=== PATIENT | female | born 1985 | race Caucasian/White ===

== ENCOUNTER 2019-04-14 22:55 | Emergency (ER) | payer OTHER ==
[~2019-04-14] VITALS: Ht 172.7 cm; Wt 114.3 kg
[~2019-04-14 22:55] MED LIST: IBUP800T48 PO
[2019-04-14 23:02] VITALS: Ht 172.7 cm; Wt 114.3 kg
[2019-04-15] MEDS ORDERED: IBUPROFEN 600 MG TAB PO ONE (00:30)
--- NOTE | 2019-04-15 01:57 | ERD ---
ER Documentation Chief Complaint Chief Complaint LEFT HAND PAIN S/P HEAVY TRAYS FALLING ON HAND. CMS INTACT. HPI This is a 33-year-old female previously healthy presents to the emergency de partment by her coworker with concerns for left hand injury which occurred at 10:15 PM today. The patient works as a meat cutter apprentice at [employer] and she was preparing some meat when multiple large metal trays fell onto her left hand and left forearm. She took no medication for relief of symptoms. She reports 10/10 severity pain which is worse with movement. Pain is constant. No other symptoms reported currently. ROS All systems reviewed and are negative except as per history of present illness. Medications Home Meds Active Scripts Ibuprofen* (Motrin*) 800 Mg Tab, 800 MG PO Q6, #30 TAB Prov:WILEY JOSE PA-C 04/15/19 Allergies Allergies: Coded Allergies: Sulfa (Sulfonamide Antibiotics) (Verified Allergy, Unknown, 04/14/19) acetaminophen (Verified Allergy, Unknown, 04/14/19) PMhx/Soc Medical and Surgical Hx: pt denies Medical Hx, pt denies Surgical Hx Hx Alcohol Use: No Hx Substance Use: No Hx Tobacco Use: No Smoking Status: Never smoker FmHx Family History: No diabetes Physical Exam Vitals Vital Signs Date Temp Pulse Resp B/P (MAP) Pulse Ox O2 O2 Flow FiO2 Time Delivery Rate 04/14/19 98.7 108 22 125/85 100 23:02 (98) Physical Exam Const: No acute distress Head: Atraumatic Eyes: Normal Conjunctiva ENT: Normal External Ears, Nose and Mouth. Neck: Full range of motion. No meningismus. Resp: No respiratory distress. Skin: No petechiae or rashes Ext: Tenderness palpation over the left wrist and the left hand at the fourth and fifth metacarpal. Limited range of motion of the left wrist secondary to pain. No obvious deformity. No open fractures. Patient is neurovascularly intact to the left upper extremity. 2+ radial pulses to the left upper extremity. Neur: Awake and alert Psych: Normal Mood and Affect Results 24 hrs Current Medications Medications Dose Sig/Rudy Start Time Status Last (Trade) Ordered Route PRN Stop Time Admin Dose Reason Admin Ibuprofen 600 mg ONCE ONCE 04/15/19 DC 04/15/19 (Motrin) PO 00:30 04/15/19 00:20 00:31 [place] [address] Radiology Main Line: [phone] DIAGNOSTIC IMAGING REPORT Patient: DAVON MO : 1985 Age: 33 Sex: F MR #: [id number] DOS: 04/15/19 0000 Ordering MD: WILEY JOSE PA-C Location: [facility] Room/Bed: PROCEDURE: XR Hand. CLINICAL INDICATION: Injury with left the metacarpal pain TECHNIQUE: PA, oblique and lateral views of the left hand were obtained. COMPARISON: None available. FINDINGS: Mineralization is within normal limits. No fracture or osseous lesion is identified. Joint spaces are preserved. Diffuse soft tissue swelling is present. No radiopaque foreign body is present. RPTAT:HJJR IMPRESSION: Soft tissue swelling without evidence for fracture or dislocation of the left hand. Zurdo Ty Physician Date Time Electronically viewed and signed by Zurdo Ty Physician on 04/15/2019 00:48 JR/ CC: WILEY JOSE PA-C [id number] [place] [address] Radiology Main Line: [phone] DIAGNOSTIC IMAGING REPORT Patient: DAVON MO : 1985 Age: 33 Sex: F MR #: [id number] DOS: 04/15/19 0000 Ordering MD: WILEY JOSE PA-C Location: [facility] Room/Bed: PROCEDURE: XR Wrist. CLINICAL INDICATION: Injury. Possible fracture. TECHNIQUE: AP, lateral and oblique views of the left wrist were performed. COMPARISON: No prior studies are available for comparison. FINDINGS: No evidence of fracture, dislocation, or subluxation is seen. The bones appear well mineralized. The joint spaces are well preserved. Soft tissue swelling is present. RPTAT:HJJR IMPRESSION: Soft tissue swelling without evidence for fracture or dislocation of the left wrist. Physician Power Date Time Electronically viewed and signed by Zurdo Ty Physician on 04/15/2019 00:49 JR/ CC: WILEY JOSE PA-C [id number] Procedures/MDM 33-year-old female presented to the emergency department complaining of left ballesteros nd and left wrist pain after injury. X-rays were negative for sign of fracture. Full reports interpreted by the radiologist may be viewed above. The patient was administered ibuprofen in the department with improvement of her pain. She required a Velcro wrist splint for immobilization of possible occult fracture and for comfort.Splint Assessment: Neurovascularly intact post splint placement with good fit. Patient's extremity symptoms have stabilized while they have been evaluated in the department and are appropriate for outpatient follow up. No evidence of compartment syndrome, neurologic injury, vascular injury, open joint, open fracture, tendon laceration, or foreign body. No evidence of life- threatening pathology at time of discharge. Pt/family in agreement with discharge plan/diagnosis. Pt/family advised to return immediately with any new or worsening symptoms. Follow-up with primary care physician within the next 1- 2 days. Departure Diagnosis: Primary Impression: Injury of left hand Encounter type: initial encounter Qualified Codes: S69.92XA - Unspecified injury of left wrist, hand and finger(s), initial encounter Condition: Fair Patient Instructions: Sprain Hand Referrals: [facility] YOU HAVE RECEIVED A MEDICAL SCREENING EXAM AND THE RESULTS INDICATE THAT YOU DO NOT HAVE A CONDITION THAT REQUIRES URGENT TREATMENT IN THE EMERGENCY DEPARTMENT. FURTHER EVALUATION AND TREATMENT OF YOUR CONDITION CAN WAIT UNTIL YOU ARE SEEN IN YOUR DOCTORS OFFICE WITHIN THE NEXT 1-2 DAYS. IT IS YOUR RESPONSIBILITY TO MAKE AN APPOINTMENT FOR FOLOW-UP CARE. IF YOU HAVE A PRIMARY DOCTOR --you should call your primary doctor and schedule an appointment IF YOU DO NOT HAVE A PRIMARY DOCTOR YOU CAN CALL OUR PHYSICIAN REFERRAL HOTLINE AT IF YOU CAN NOT AFFORD TO SEE A PHYSICIAN YOU CAN CHOSE FROM THE FOLLOWING [facility] [address] [facility] [address] [facility] [address] [facility] [address] [facility] [facility] [address] [facility]. [facility] [address] Additional Instructions: Call your primary care doctor TOMORROW for an appointment during the next 1-2 days.See the doctor sooner or return here if your condition worsens before your appointment time. WILEY JOSE PA-C Apr 15, 2019 01:57
[2019-04-15 02:40] VITALS: BP 114/76; PULSE 80; RESP 18
== END 2019-04-15 02:41 | disposition home or self-care (01) ==
LOC: FTE 22:55
DX: S69.92XA Unspecified injury of left wrist, hand and finger(s), initial encounter (principal); W20.8XXA Other cause of strike by thrown, projected or falling object, initial encounter; Y92.9 Unspecified place or not applicable